=== PATIENT | male | born 1975 | race American Indian/Alaskan Native ===

== ENCOUNTER 2020-08-09 22:53 | Emergency (ER) | payer SELFPAY | END 2020-08-10 01:04 | disposition left against medical advice (07) | LOC: ED 22:53 | DX: M79.10 Myalgia, unspecified site (principal); Z53.21 Procedure and treatment not carried out due to patient leaving prior to being seen by health care provider; Y04.8XXA Assault by other bodily force, initial encounter; Y93.89 Activity, other specified; Y92.89 Other specified places as the place of occurrence of the external cause; Y99.8 Other external cause status ==

== ENCOUNTER 2021-03-19 09:53 | Emergency (ER) | payer MEDICARE, MEDICAID ==
--- NOTE | 2021-03-19 11:23 | Event Note ---
ED Screening Note Date of service: 03/19/21 Time: 11:20 ED Screening Note: 45-year-old male patient with history of HIV and oral cancer presents to the emergency department with complaints of lumbar back pain starting 2 days ago. Patient states the pain began while he was attempting to stand up from the floor. Pain is localized to the midline lower lumbar area. No history of prior back surgery. No history of similar symptoms. Endorses marijuana use. Last CD4 count 10 months ago was undetectable. He has been off of his antiretroviral therapy for 9 months. Patient was reportedly diagnosed with oral cancer "but it went away." General: Awake, appropriately interactive, no acute distress. Neck: Supple. Full range of motion intact. Cardiovascular: Normal peripheral perfusion. Pulmonary: No respiratory distress. Patient is speaking normally without use of accessory muscles. Skin: No apparent rashes or lesions. Neurological: No facial asymmetry. Speech is clear. Follows commands. Patient is alert and oriented. Musculoskeletal: There is midline lower lumbar tenderness. No step-offs. No saddle anesthesia. Ambulatory without assistance. Distal neurovascular and motor/sensory function intact. Psych: Cooperative. Appropriate mood and affect. Case discussed with Dr. Phillip, attending emergency physician, who recommended proceeding with laboratory evaluation in the setting of patient's immunosuppression. Decision to pursue further diagnostic work-up including imag ing deferred to additional ED providers. I have greeted and performed a focused rapid initial assessment of this patient. A comprehensive ED assessment and evaluation of the patient, analysis of all test results, and completion of the medical decision-making process will be conducted by additional ED providers. This initial assessment/diagnostic orders/clinical plan/treatment(s) is/are subject to change based on patients health status, clinical progression and re-assessment. Further treatment and workup at subsequent clinical provider's discretion. Patient/guardian urged not to elope from the ED as their condition may be serious if not clinically assessed and managed.
[2021-03-19 11:49] LABS: Hematocrit 43.5 % (35.5-45.6); Hemoglobin 14.7 gm/dl (11.8-15.2); Mean Corpuscular HGB Conc 34 % (32-34); Mean Corpuscular Volume 90 fl (84-94); Platelet Count 183 K/mm3 (140-440); Red Blood Count 4.83 M/mm3 (3.65-5.03); Red Cell Distribution Width 13.4 % (13.2-15.2)
[2021-03-19 12:10] LABS: Alanine Aminotransferase 25 units/L (7-56); Albumin 4.2 g/dL (3.9-5); BUN/Creatinine Ratio 11; Blood Urea Nitrogen 12 mg/dL (9-20); Calcium 9.2 mg/dL (8.4-10.2); Hemolysis Index 4
[2021-03-19 12:50] LABS: Erythrocyte Sedimentation Rate 5 mm/Hr (0-20)
--- NOTE | 2021-03-19 13:11 | Emergency Department Report ---
ED General Adult HPI - General Chief complaint: Back Pain/Injury Stated complaint: LOW BACK PAIN PUI?: No Time Seen by Provider: 03/19/21 12:18 Source: patient, RN notes reviewed Mode of arrival: Ambulatory Limitations: No Limitations - History of Present Illness Initial comments: The patient was evaluated in the emergency department for symptoms described in the history of present illness. He/she was evaluated in the context of the global COVID-19 pandemic, which necessitated consideration that the patient might be at risk for infection with the virus that causes COVID-19. Institutional protocols and algorithms that pertain to the evaluation of patients at risk for COVID-19 are in a state of rapid change based on info rmation released by regulatory bodies including the CDC and federal and state organizations. These policies and algorithms were followed during the patient's care in the emergency department. Please note that these policies, procedures and recommendations changed on a rapid basis. This is a 45-year-old gentleman. He is not known to myself previously. He has recently moved here from [place]. He has a history of HIV, not currently compliant with antiviral therapy. He presents to the ER with a complaint of mechanical right-sided paralumbar back pain, present for the past few days. He works at [employer], and does a bit of heavy lifting. He has not taken any pain medication [id number]. The right sided paralumbar back pain does not radiate anywhere. It increases with palpation and range of motion. It decreases with rest. Patient denies headache, neck pain, chest pain, abdominal pain, fever, midline back pain, bladder or bowel retention/incontinence, he denies saddle anesthesia, and he denies IV drug use. Patient denies Covid exposure symptomatology. He does not have a local primary care doctor, or infectious disease specialist here in [place]. He states he is motivated to follow-up as an outpatient with the aforementioned. -: Gradual, days(s) Location: back (Right-sided paralumbar back) Radiation: non-radiation Quality: aching Consistency: intermittent Improves with: movement, rest - Related Data Previous Rx's Medication Instructions Recorded Last Taken Type Acetaminophen [Non-Aspirin Extra 500 mg PO Q6HR PRN #30 tablet 03/19/21 Unknown Rx Strength] Ibuprofen [Motrin] 600 mg PO Q8H PRN #30 tablet 03/19/21 Unknown Rx Allergies Allergy/AdvReac Type Severity Reaction Status Date / Time tramadol Allergy Unknown Verified 03/19/21 09:58 ED Review of Systems ROS: Stated complaint: LOW BACK PAIN Other details as noted in HPI Comment: All other systems reviewed and negative Musculoskeletal: back pain ED Past Medical Hx - Past Medical History Previous Medical History?: No - Surgical History Additional Surgical History: right ear, - Social History Smoking Status: Current Every Day Smoker Substance Use Type: Alcohol - Medications Home Medications: Home Medications Medication Instructions Recorded Confirmed Last Taken Type Acetaminophen [Non-Aspirin Extra 500 mg PO Q6HR PRN #30 tablet 03/19/21 Unknown Rx Strength] Ibuprofen [Motrin] 600 mg PO Q8H PRN #30 tablet 03/19/21 Unknown Rx ED Physical Exam - General Limitations: No Limitations General appearance: alert, in no apparent distress - Head Head exam: Present: atraumatic, normocephalic - Eye Eye exam: Present: normal appearance, PERRL. Absent: nystagmus - ENT ENT exam: Present: normal exam, normal orophraynx, mucous membranes moist, normal external ear exam - Neck Neck exam: Present: normal inspection, full ROM. Absent: tenderness, meningismus - Respiratory Respiratory exam: Present: normal lung sounds bilaterally. Absent: respiratory distress, wheezes, rales, rhonchi, stridor, decreased breath sounds - Cardiovascular Cardiovascular Exam: Present: regular rate, normal rhythm, normal heart sounds. Absent: bradycardia, tachycardia, irregular rhythm, systolic murmur, diastolic murmur, rubs, gallop - GI/Abdominal GI/Abdominal exam: Present: soft. Absent: distended, tenderness, rebound, rigid, pulsatile mass - Rectal Rectal exam: Present: deferred - Extremities Exam Extremities exam: Present: normal inspection (Downgoing plantar reflexes bilaterally), full ROM, other (2+ pulses noted in the bilateral upper and lower extremities. There is no palpable cord. negative Homans sign. Muscular compartments are soft. The pelvis is stable.). Absent: pedal edema, calf tend erness - Back Exam Back exam: Present: normal inspection, full ROM, paraspinal tenderness. Absent: tenderness, CVA tenderness (R), CVA tenderness (L) - Neurological Exam Neurological exam: Present: alert, oriented X3, reflexes normal (2+ quadriceps reflex bilaterally. Downgoing plantar reflexes bilaterally. No clonus noted in the lower extremities.), other (No facial droop. Tongue midline. Extraocular movements intact bilaterally. Facial sensation intact to light touch in V1, V2, V3 distribution bilaterally. 5 and a 5 strength in 4 extremities. Sensation intact to light touch in 4 extremities.). Absent: motor sensory deficit (Sensation intact to light touch and proprioception in the bilateral upper and l ower extremities) - Psychiatric Psychiatric exam: Present: normal affect, normal mood - Skin Skin exam: Present: warm, dry, intact, normal color. Absent: rash ED Course Vital Signs 03/19/21 03/19/21 10:00 13:44 Temperature 98.2 F Pulse Rate 82 Respiratory 18 18 Rate Blood Pressure 114/84 O2 Sat by Pulse 99 Oximetry - Reevaluation(s) Reevaluation #1: 03/19/21 14:33 Repeat Accu-Chek 95. Patient asking to be discharged ED Medical Decision Making - Lab Data Result diagrams: 03/19/21 11:35 03/19/21 11:35 Vital Signs 03/19/21 03/19/21 10:00 13:44 Temperature 98.2 F Pulse Rate 82 Respiratory 18 18 Rate Blood Pressure 114/84 O2 Sat by Pulse 99 Oximetry Lab Results 03/19/21 03/19/21 03/19/21 Range/Units 11:35 11:35 13:16 WBC 2.8 L (4.5-11.0) K/mm3 RBC 4.83 (3.65-5.03) M/mm3 Hgb 14.7 (11.8-15.2) gm/dl Hct 43.5 (35.5-45.6) % MCV 90 (84-94) fl MCH 30 (28-32) pg MCHC 34 (32-34) % RDW 13.4 (13.2-15.2) % Plt Count 183 (140-440) K/mm3 [place] % (Auto) [employer] ESR 5 (0-20) mm/Hr Sodium 137 (137-145) mmol/L Potassium 4.3 (3.6-5.0) mmol/L Chloride 100.1 (98-107) mmol/L Carbon Dioxide 30 (22-30) mmol/L Anion Gap 11 mmol/L BUN 12 (9-20) mg/dL Creatinine 1.1 (0.8-1.3) mg/dL Estimated GFR > 60 ml/min BUN/Creatinine Ratio 11 % Glucose 49 L (75-100) mg/dL Calcium 9.2 (8.4-10.2) mg/dL Total Bilirubin 0.50 (0.1-1.2) mg/dL AST 28 (5-40) units/L ALT 25 (7-56) units/L Alkaline Phosphatase 82 (35-129) units/L Total Creatine Kinase 178 H (55-170) units/L C-Reactive Protein 0.10 (0.00-1.30) mg/dL Total Protein 7.9 (6.3-8.2) g/dL Albumin 4.2 (3.9-5) g/dL Albumin/Globulin Ratio 1.1 % Urine Color Yellow (Yellow) Urine Turbidity Clear (Clear) Urine pH 6.0 (5.0-7.0) Ur Specific [place] 1.018 (1.003-1.030) Urine Protein <15 mg/dl (Negative) mg/dL Urine Glucose (UA) Neg (Negative) mg/dL Urine Ketones Neg (Negative) mg/dL Urine Blood Neg (Negative) Urine Nitrite Neg (Negative) Urine Bilirubin Neg (Negative) Urine Urobilinogen < 2.0 (<2.0) mg/dL Ur Leukocyte Esterase Sm (Negative) Urine WBC (Auto) 6.0 (0.0-6.0) /HPF Urine RBC (Auto) 3.0 (0.0-6.0) /HPF U Epithel Cells (Auto) 1.0 (0-13.0) /HPF Urine Mucus Few /HPF - Medical Decision Making Differential diagnosis, including but not limited to: Musculoskeletal back pain, muscular back pain, noncompliance with HIV medication Assessment and plan: 45-year-old gentleman, who is afebrile, with reassuring vital signs, with an intact and normal neurologic examination, without motor, sensory or reflex deficit, without pulsatile abdominal mass, with reproducible paralumbar back pain. Patient denies intravenous drug use, he does not have midline spinal tenderness, redness, warmth on examination or palpation, and his examination at this time in addition to his history is not suggestive of epidural compression syndrome and is very unlikely to represent epidural abscess. There is no pulsatile abdominal mass, and there is no abdominal tenderness. Laboratory studies were sent, they are reviewed and appreciated, he can follow- up with an outpatient primary care doctor for his asymptomatic relative leukopenia. Initially glucose was 49, however, patient not symptomatically hypoglycemic, nursing team to provide food, and repeat Accu-Chek, and if within normal limits, patient may be discharged with outpatient follow-up. I did have a rather extensive discussion with the patient on return precautions, and need to follow- up with either outpatient primary care, infectious disease, or health department to reinitiate his antiviral therapy. Critical care attestation.: If time is entered above; I have spent that time in minutes in the direct care of this critically ill patient, excluding procedure time. ED Disposition Clinical Impression: Back pain Qualifiers: Back pain location: low back pain Chronicity: acute Back pain laterality: right Sciatica presence: without sciatica Qualified Code(s): M54.5 - Low back pain Disposition: TO HOME OR SELFCARE Is pt being admited?: No Does the pt Need Aspirin: No Condition: Good Instructions: Acute Back Pain, Adult Additional Instructions: Rest, avoid heavy lifting, and strenuous physical activities. Patient may alternate ice packs and heat packs as needed for painful area on the back. Take the pain medication as needed and directed. Please follow-up with your primary care doctor within the next week. Please follow-up with either the health department, or infectious disease specialist within the next week to reinitiate antiviral therapy. It is very important to reinitiate antiviral therapy for patient's chronic medical conditions, to avoid complications related to existing viral diagnosis. Noncompliance with antiviral therapy may result in worsening of existing medical conditions/immune compromise, and may lead to , disability, paralysis, loss of quality of life. [facility] is a local infectious disease group. Patient may also follow-up with the [facility] department. [facility] is a local medical clinic. Dr. Ankur Gasca is a local primary care doctor Please return to the emergency room right away with new pain, worsened pain, migration of pain, bladder or bowel retention or incontinence, numbness/tingling over the rectum, genitals, buttocks, lower extremities, or lower abdominal region, fever, chills, intractable pain, or any new, worsened or different symptoms not present on the initial ER evaluation. Prescriptions: Ibuprofen [Motrin] 600 mg PO Q8H PRN #30 tablet PRN Reason: Pain Acetaminophen [Non-Aspirin Extra Strength] 500 mg PO Q6HR PRN #30 tablet PRN Reason: Pain , Severe (7-10) Referrals: AARON GASCA MD [Staff Physician] - 3-5 Days [facility] [Provider Group] - 3-5 Days [facility] [Provider Group] - 3-5 Days [facility] [Outside] - 3-5 Days Forms: Work/School Release Form(ED)
[2021-03-19] MEDS ORDERED: ACETAMINOPHEN 325 MG TAB PO ONE (13:29)
[2021-03-19] MEDS ORDERED: IBUPROFEN 400 MG TAB PO ONE (13:29)
[2021-03-19 13:48] LABS: Bilirubin,Urine NEG (Negative); Blood,Urine NEG (Negative); Color,Urine Yellow (Yellow); Mucus,Urine FEW /HPF; Protein,Urine <15 mg/dL mg/dL (Negative); Urobilinogen,Urine < 2.0 mg/dL (<2.0)
[2021-03-19 14:16] LABS: Total Cells Counted 100
[2021-03-19 14:17] LABS: Platelet Estimate Consistent w Auto; RBC Morphology Normal
[2021-03-19 14:39] VITALS: BP 128/74
== END 2021-03-19 14:39 | disposition home or self-care (01) ==
LOC: ED 09:53
DX: M54.5 Low back pain (principal); F17.200 Nicotine dependence, unspecified, uncomplicated; Z79.899 Other long term (current) drug therapy; Z88.8 Allergy status to other drugs, medicaments and biological substances; Z98.890 Other specified postprocedural states
CPT/HCPCS: 36415; 80053; 81001; 82550; 82962; 85007; 85025; 85652; 86140